=== PATIENT | male | born 1970 | race Two or more races ===

== ENCOUNTER 2024-08-31 19:16 | Emergency (ER) | payer MEDICAID ==
[~2024-08-31] VITALS: Ht 162.6 cm; Wt 86.2 kg
[2024-08-31] MEDS ORDERED: CEPH-570 PO (19:50)
[2024-08-31 20:05] VITALS: BP 132/80; TEMP 97.4; O2SAT 96
== END 2024-08-31 20:06 | disposition home or self-care (01) ==
LOC: ER 19:19
DX: E11.621 Type 2 diabetes mellitus with foot ulcer (principal); L97.519 Non-pressure chronic ulcer of other part of right foot with unspecified severity; E78.5 Hyperlipidemia, unspecified; Z89.512 Acquired absence of left leg below knee

== ENCOUNTER 2025-03-05 00:05 | Emergency (ER) | payer MEDICAID ==
[~2025-03-05] VITALS: Ht 165.1 cm; Wt 93.0 kg
[~2025-03-05 00:05] MED LIST: CEPH-570 PO
[2025-03-05] MEDS ORDERED: GUAIFENESIN/D-METHORPHAN HB 5 ML UDC ONE (00:59)
[2025-03-05] MEDS ORDERED: ACETAMINOPHEN ES 500 MG TABLET ONE (00:59)
[2025-03-05 01:00] VITALS: BP 166/103; TEMP 99.7; O2SAT 94
[2025-03-05] MEDS: GUAIFENESIN/D-METHORPHAN HB 5 ML UDC PO ONE (01:08)
[2025-03-05] MEDS: ACETAMINOPHEN ES 500 MG TABLET PO ONE (01:08)
[2025-03-05] MEDS ORDERED: NIRM1TAB10 PO (02:05)
[2025-03-05] MEDS ORDERED: BENZ-13 PO (02:05)
== END 2025-03-05 02:15 | disposition home or self-care (01) ==
LOC: ER 00:08
DX: U07.1 COVID-19 (principal); R05.9 Cough, unspecified; R50.9 Fever, unspecified; R07.0 Pain in throat; E11.9 Type 2 diabetes mellitus without complications; E78.5 Hyperlipidemia, unspecified; Z89.512 Acquired absence of left leg below knee; Z79.899 Other long term (current) drug therapy
CPT/HCPCS: 71045-TC

== ENCOUNTER 2025-07-29 22:40 | Emergency (ER) | payer MEDICAID ==
[~2025-07-29] VITALS: Ht 165.1 cm; Wt 88.9 kg
[~2025-07-29 22:40] MED LIST changes: +BENZ-13 PO; +NIRM1TAB10 PO
[2025-07-30] MEDS ORDERED: MORPHINE SULFATE INJ 4 MG/ML DISP.SYRIN ONE (00:20)
[2025-07-30] MEDS ORDERED: ONDANSETRON HCL/PF 4 MG/2 ML VIAL ONE (00:20)
[2025-07-30 00:22] LABS: PLATELET COUNT (AUTO) 235 K/uL (150-450); RED BLOOD CELL COUNT(AUTO) 3.76 MIL/uL (4.5-6.0); RED CELL DISTRIBUTION WIDTH 13.7 % (11.5-15.0); WHITE BLOOD COUNT (AUTO) 5.9 K/uL (4.3-11.0)
[2025-07-30] MEDS: MORPHINE SULFATE INJ 2 MG/ML DISP.SYRIN IV ONE (00:31)
[2025-07-30] MEDS: ONDANSETRON HCL/PF - ER 4 MG/2 ML VIAL IV ONE (00:31)
[2025-07-30 01:00] LABS: CALCIUM, SERUM 8.5 mg/dL (8.5-10.1); CREATININE 1.7 mg/dL (0.6-1.3); SODIUM SERUM 142.0 mmol/L (136-145); UREA NITROGEN, BLOOD 31.0 mg/dL (7-18)
[2025-07-30 01:09] LABS: ASPARTATE AMINOTRANSFERASE 13.0 U/L (15-37); NT-PRO BNP 506.0 pg/mL (0-125); TOTAL PROTEIN, SERUM 7.7 g/dL (6.4-8.2)
[2025-07-30 01:40] LABS: APPEARANCE,URINE SLIGHTLY CLOUDY (CLEAR); BLOOD, URINE 3+ Ery/uL (NEGATIVE); LEUKOCYTE ESTERASE ,URINE NEGATIVE (NEGATIVE); NITRITE, URINE POSITIVE (NEGATIVE); UGLUCOSE 3+ mg/dL (NEGATIVE)
[2025-07-30 01:45] LABS: ADD URINE CULTURE YES; AMPHETAMINE, URINE NEGATIVE (NEGATIVE); BARBITURATE, URINE NEGATIVE (NEGATIVE); BENZODIAZEPINE, URINE NEGATIVE (NEGATIVE); CANNABINOID, URINE NEGATIVE (NEGATIVE); COCCAINE, URINE NEGATIVE (NEGATIVE); OPIATE, URINE NEGATIVE (NEGATIVE); SQUAMOUS EPITHELIAL CELL,UR Few /HPF (None Seen)
[2025-07-30] MEDS ORDERED: GABA-532 PO (03:55)
[2025-07-30 04:37] VITALS: BP 145/85; TEMP 98; O2SAT 97
== END 2025-07-30 04:38 | disposition home or self-care (01) ==
LOC: ER 22:42
DX: R51.9 Headache, unspecified (principal); R06.02 Shortness of breath; E11.9 Type 2 diabetes mellitus without complications; I11.9 Hypertensive heart disease without heart failure; E78.5 Hyperlipidemia, unspecified; Z89.512 Acquired absence of left leg below knee; Z79.899 Other long term (current) drug therapy
CPT/HCPCS: 99285; 70450; 96374; 71045; 96375; 93005; 70486; 85025; 87077; 87086; 36415; 80053; 84484; 83880; 80307; 81001; J2270; J2405 ×2

== ENCOUNTER 2025-08-01 23:00 | Emergency (ER) | payer MEDICAID ==
[~2025-08-01] VITALS: Ht 165.1 cm; Wt 88.9 kg
[~2025-08-01 23:00] MED LIST changes: +GABA-532 PO
[2025-08-02 01:49] VITALS: BP 157/83; TEMP 98.2; O2SAT 99
== END 2025-08-02 01:49 | disposition home or self-care (01) ==
LOC: ER 23:08
DX: R51.9 Headache, unspecified (principal); J34.89 Other specified disorders of nose and nasal sinuses; E11.9 Type 2 diabetes mellitus without complications; I11.9 Hypertensive heart disease without heart failure; E78.5 Hyperlipidemia, unspecified; Z79.899 Other long term (current) drug therapy